=== PATIENT | female | born 1990 | race Hispanic/Latino ===

== ENCOUNTER 2019-05-31 10:00 | Day surgery (SDC) | payer OTHER ==
[~2019-05-31 10:00] MED LIST: BUPIVACA 0.5%/EPI 0.0005%/PF 10 ML VIAL ONE; METHYLENE BLUE 0.5% 10 ML AMP ONE
[2019-05-31 10:15] LABS: Specific Gravity 1.015 (1.005-1.030)
[2019-05-31] MEDS ORDERED: Ringers Lactate 1,000 ML IV ONE (10:18)
[2019-05-31] MEDS ORDERED: CEFAZOLIN/SWI 1gm 1 GM/10 ML SYR ONE (10:18)
[2019-05-31] MEDS ORDERED: dexAMETHasone 10 MG/ML VIAL ONE (10:35)
[2019-05-31] MEDS ORDERED: MIDAZOLAM HCL 2 MG/2 ML INJ ONE (10:35)
[2019-05-31] MEDS ORDERED: propofoL 200 MG/20 ML VIAL IV ONE (10:35)
[2019-05-31] MEDS ORDERED: FENTANYL CITR 100 MCG/2 ML ONE (10:35)
[2019-05-31] MEDS ORDERED: LIDOCAINE 2% MPF 5 ML VIAL ONE (10:35)
[2019-05-31] MEDS ORDERED: NS 0.9% VIAL 10 ML ONE (11:25)
[2019-05-31] MEDS ORDERED: KETOROLAC 30 MG/ML INJ ONE (11:33)
--- NOTE | 2019-05-31 11:34 | P.OP ---
Preoperative diagnosis: Pilonidal Cyst Postoperative diagnosis: Pilonidal Cyst Primary procedure: Excision of Pilonidal Cyst Secondary procedure: Application of Amniofill Anesthesia: GETA + Local Estimated blood loss: <1cc Specimen: Tissue Findings: Pilonidal Cyst Complications: None Implants: Amniofill 500mg Transferred to: Recovery Room Condition: Good
[2019-05-31] MEDS ORDERED: HYDROMORPHONE HCL 1 MG/ML INJ ONE (11:49)
[2019-05-31 12:41] VITALS: BP 111/60; TEMP 97.4; O2SAT 97
[2019-05-31] MEDS ORDERED: DIPHENHYDRAMINE 25 MG TAB/CAP ONE (13:31)
--- NOTE | 2019-05-31 23:26 | OP ---
Date of Procedure: 05/31/2019 Surgeon: Rey Llamas MD, Preoperative Diagnosis: Pilonidal cyst. Postoperative Diagnosis: Pilonidal cyst. Procedure Performed: Excision of pilonidal cyst down to the fascial planes. No communication noted. Secondary Procedure: Application of AmnioFill. Anesthesia: General endotracheal plus local with 0.5% Marcaine with epinephrine. Estimated Blood Loss: Less than 1 mL. Specimen: Tissue from pilonidal cyst. Findings: Consistent with a pilonidal cyst. Hair was removed as well. Complications: None. Implants: AmnioFill 500 mg. Disposition: Transferred recovery room in good condition. Procedure In Detail: After informed consent was obtained, patient was brought to the operating room, prepped and draped in the usual sterile fashion. After adequate anesthesia was achieved, the area o f the pilonidal cyst superior cleft was anesthetized appropriately with 0.5% Marcaine. A 15 bl sarwat scalpel was used to dissect down through subcutaneous tissues to circumferentially dissected out this area. Electrocautery was used to dissect down and encompass the pilonidal cyst and a tissue. H air was appreciated this area. This was removed in its entirety. After completely clearing this out , hemostasis was achieved with electrocautery. The area was copiously irrigated with multiple times until completely was clear and dried. AmnioFill 500 mg was then applied into the wound after creatin g a paste with it and applied to the tobar and surface of the area. The wound was then packed with d amp-to-dry gauze x2 pieces and a sterile dressing was placed over top. The patient tolerated procedu re well without complication, transferred to the PACU in good condition. All counts were correct at the end of the case. VIDAL/LUBA Voice ID: [id number] Report ID: [id number]
== END 2019-05-31 14:10 | disposition home or self-care (01) ==
LOC: OR 10:00
PROVIDERS: ATTEND Surgery
PROC: 0JB90ZZ Excision of Buttock Subcutaneous Tissue and Fascia, Open Approach (ICD-10-PCS; principal; 2019-05-31 11:15)
DX: L05.91 Pilonidal cyst without abscess (principal)
CPT/HCPCS: 81025; 82947; 88304; 11770; J2704; J2250; J3010; J1100; J1170; J0690; J7120